=== PATIENT | female | born 1955 | race Caucasian/White ===

== ENCOUNTER → 2024-04-29 06:19 | Outpatient (REF) | payer OTHER, SELFPAY ==
[2024-04-29 09:02] LABS: ALT (SGPT) 16 U/L (0-35); AST (SGOT) 20 U/L (14-36); Albumin 4.2 g/dl (3.5-5.0); Alkaline Phosphatase 48 U/L (38-126); Blood Urea Nitrogen 20 mg/dl (7-17); Calcium 9.9 mg/dl (8.4-10.2); Carbon Dioxide 28 mmol/L (22-30); Chloride 103 mmol/L (98-107); Glucose 91 mg/dl (70-99); HDL Cholesterol 68 mg/dl; LDL Cholesterol, Calculated 127 mg/dl; Potassium 4.7 mmol/L (3.5-5.1); Sodium 141 mmol/L (135-145); Total Bilirubin 0.8 mg/dl (0.2-1.3); Total Cholesterol 238 mg/dl (50-199); Total Protein 6.5 g/dl (6.3-8.2); Triglyceride 218 mg/dl (10-149); Very Low Density Lipoprotein 43 mg/dl (0-30); eGFR > 60.00
[2024-04-29 09:27] LABS: TSH Reflex To Free T4 4.67 uIU/ml (0.47-4.68)
[2024-04-29 10:46] LABS: Glycohemoglobin (HgbA1c) 5.5 % (4.0-5.6)
== END ==
LOC: REG 06:19
PROVIDERS: ATTENDING PHYSICIAN Nurse Practitioner Adult Health
DX: E03.9 Hypothyroidism, unspecified (principal); E78.2 Mixed hyperlipidemia; R73.03 Prediabetes
CPT/HCPCS: 36415; 80053; 80061; 83036; 84443

== ENCOUNTER → 2024-07-22 14:33 | Outpatient (REF) | payer OTHER, SELFPAY | LOC: HWWDC 14:33 | PROVIDERS: ATTENDING PHYSICIAN Nurse Practitioner Adult Health | DX: Z12.31 Encounter for screening mammogram for malignant neoplasm of breast (principal) | CPT/HCPCS: 77063; 77067 ==

== ENCOUNTER → 2025-04-28 06:51 | Outpatient (REF) | payer OTHER, SELFPAY ==
[2025-04-28 07:25] LABS: Hematocrit 40.7 % (37.0-47.0); Hemoglobin 13.9 g/dL (12.0-16.0); Mean Corp Hgb Conc. 34.2 g/dL (33.0-37.0); Mean Corpuscular Volume 94.9 fL (81.0-99.0); Nucleated Red Blood Cells % 0 %; Platelet Count 245 10^3/uL (130-400); Red Cell Dist. Width 13.8 % (11.5-14.5)
[2025-04-28 08:02] LABS: ALT (SGPT) 22 U/L (0-35); AST (SGOT) 21 U/L (14-36); Albumin 4.4 g/dl (3.5-5.0); Alkaline Phosphatase 54 U/L (38-126); Blood Urea Nitrogen 16 mg/dl (7-17); Calcium 9.9 mg/dl (8.4-10.2); Carbon Dioxide 29 mmol/L (22-30); Chloride 99 mmol/L (98-107); Glucose 103 mg/dl (70-99); HDL Cholesterol 76 mg/dl; LDL Cholesterol, Calculated 105 mg/dl; Potassium 4.7 mmol/L (3.5-5.1); Sodium 131 mmol/L (135-145); Total Protein 7.0 g/dl (6.3-8.2); Very Low Density Lipoprotein 21 mg/dl (0-30); eGFR > 60.00
[2025-04-28 09:52] LABS: Glycohemoglobin (HgbA1c) 6.0 % (4.0-5.9)
== END ==
LOC: REG 06:51
PROVIDERS: ATTENDING PHYSICIAN Nurse Practitioner Adult Health
DX: E78.2 Mixed hyperlipidemia (principal); E03.9 Hypothyroidism, unspecified; I10 Essential (primary) hypertension; M81.0 Age-related osteoporosis without current pathological fracture; R73.03 Prediabetes; Z13.29 Encounter for screening for other suspected endocrine disorder; Z00.00 Encounter for general adult medical examination without abnormal findings
CPT/HCPCS: 36415; 80053; 80061; 83036; 84443; 85025

== ENCOUNTER → 2025-05-10 07:07 | Outpatient (REF) | payer OTHER, SELFPAY ==
[2025-05-10 08:48] LABS: Blood Urea Nitrogen 10 mg/dl (7-17); Calcium 10.0 mg/dl (8.4-10.2); Carbon Dioxide 27 mmol/L (22-30); Chloride 102 mmol/L (98-107); Glucose 110 mg/dl (70-99); Potassium 4.3 mmol/L (3.5-5.1); Sodium 134 mmol/L (135-145); eGFR > 60.00
== END ==
LOC: REG 07:07
PROVIDERS: ATTENDING PHYSICIAN Nurse Practitioner Adult Health
DX: Z00.00 Encounter for general adult medical examination without abnormal findings (principal); I10 Essential (primary) hypertension; E87.1 Hypo-osmolality and hyponatremia
CPT/HCPCS: 36415; 80048